=== PATIENT | male | born 1975 | race Caucasian/White ===

== ENCOUNTER 2018-11-04 07:13 | Emergency (ER) | payer BC ==
--- NOTE | 2018-11-04 07:26 | ED Physician Documentation ---
History of Present Illness - Stated complaint Stated Complaint: COUGH/FEVER/BODY ACHE - History obtained from History obtained from: Patient, Family - History of Present Illness Pain level max: 9 - Additonal information Additional information: Patient is a previously healthy 43-year-old male presenting with flulike symptoms for the past 1 week. Patient does note multiple sick contacts at home with similar symptoms. Patient reports childhood asthma and remote history of smoking, but quit over 15 years ago. Patient does have history of high blood pressure as well, but is controlled without medication. Patient complains of fever treated with ibuprofen, as well as nasal congestion, sinus pressure, sore throat, productive cough, and chest discomfort while coughing. Patient also reports one episode of posttussive emesis, but denies other abdominal pain, vomiting, urinary changes, stool changes. Patient reports that ibuprofen has alleviated fever, but has not helped discomfort. Coughing worsens all symptoms. Review of Systems Ten Systems: 10 systems reviewed and negative Constitutional: reports: Fever, Chills Ears: denies: Ear pain Nose: reports: Rhinorrhea / runny nose, Congestion Throat: reports: Sore throat Cardiac: reports: Chest pain / pressure Respiratory: reports: Dyspnea, Cough GI: reports: Vomiting. denies: Abdominal Pain, Constipation, Diarrhea : denies: Dysuria PD PAST MEDICAL HISTORY - Past Medical History Past Medical History: Yes Cardiovascular: Hypertension Respiratory: Asthma - Past Surgical History Past Surgical History: No - Present Medications Home Medications: Ambulatory Orders Medication Instructions Recorded Confirmed RX: Albuterol Sulf [Ventolin Hfa 1 - 2 puffs INH Q4HR PRN #1 inhaler 11/04/18 Inhaler] RX: Azithromycin [Zithromax] 250 mg PO DAILY #6 tablet 11/04/18 - Allergies Allergies/Adverse Reactions: Allergies Allergy/AdvReac Type Severity Reaction Status Date / Time No Known Drug Allergies Allergy Verified 11/04/18 07:29 - Social History Smoking Status: Former smoker PD ED PE NORMAL - General General: Alert and oriented X 3, No acute distress, Well developed/nourished - HEENT HEENT: Atraumatic, EOMI, Moist mucous membranes, Pharynx benign, Dentition benign - Neck Neck: Supple, no meningeal sign - Cardiac Cardiac: RRR, No murmur - Respiratory Respiratory: No respiratory distress, Other (Diminished lung sounds over bases bilaterally with occasional expiratory wheeze scattered throughout) - Abdomen Abdomen: Normal bowel sounds, Soft, Non tender, Non distended - Derm Derm: Normal color, Warm and dry, No rash - Extremities Extremities: No deformity - Neuro Neuro: Alert and oriented X 3, No motor deficit, No sensory deficit - Psych Psych: Normal mood, Normal affect Results - Vitals Vitals: Vital Signs - 24 hr 11/04/18 11/04/18 07:26 07:51 Temperature 36.1 C L Heart Rate 97 95 Respiratory 14 16 Rate Blood Pressure 136/83 H O2 Saturation 98 Oxygen O2 Source Room air PD MEDICAL DECISION MAKING - ED course Complexity details: re-evaluated patient, considered differential, d/w patient, d/w family ED course: Most concerning for influenza, URI, other viral illness, as well as asthma exacerbation, COPD exacerbation, pneumonia, but feel less likely. Vital signs within normal limits upon arrival. Patient currently afebrile. Patient reports sick contacts with similar symptoms and viral-like syndrome over the past 1 week. Patient also reports purulent drainage from nose and productive cough making sinusitis and pneumonia more likely. Also considering etiologies such as bronchitis or generalized URI. Have lower suspicion for cardiac etiology such as ACS, myocardial infarction, unstable angina. Do not have high suspicion for PE and patient can be ruled out by PERC criteria. Do not the patient requires cardiac workup or interventions at this time. Patient reports childhood history of asthma and history of smoking over 15 years ago. Do not feel that patient is in particular exacerbation, but considered, particularly given wheezing on exam. [place] appropriate to provide breathing treatment of albuterol, but do not feel he requires further interventions beyond that. Chest x-ray also obtained to further evaluate possible pneumonia. Discussed potential influenza testing and Tamiflu with patient, but all decided that it was not necessarily appropriate given duration of symptoms now 1 week. Patient is out of treatment window for influenza and can otherwise be treated with supportive cares at this juncture.Albuterol treatment provided significant improvement for patient and plan to provide him with prescription for albuterol inhaler. Chest x-ray revealed slight changes indicative of possible pneumonia given clinical scenario and exam, feel appropriate to treat for community acquired pneumonia. Discussed results and recommendations with patient and family, who voiced understanding and are comfortable with discharge plan. Departure - Departure Disposition: 01 Home, Self Care Clinical Impression: Pneumonia Qualifiers: Pneumonia type: due to unspecified organism Laterality: unspecified laterality Lung location: unspecified part of lung Qualified Code(s): J18.9 - Pneumonia, unspecified organism Condition: Good Instructions: Pneumonia Dc Follow-Up: DELMA MYERS MD [Primary Care Provider] - Within 3 Days Prescriptions: RX: Albuterol Sulf [Ventolin Hfa Inhaler] 1 - 2 puffs INH Q4HR PRN #1 inhaler PRN Reason: Shortness Of Air/Wheezing RX: Azithromycin [Zithromax] 250 mg PO DAILY #6 tablet Comments: Please use inhaler as needed as instructed. Please start antibiotics today and make sure you complete as instructed. Also recommend other [id number] supportive care such as nasal decongestants, ibuprofen, Tylenol, as well as hydration and rest. Follow-up with primary care physician in next 2-3 days and return to ED sooner if experience worsening symptoms or other concerns. Discharge Date/Time: 11/04/18 09:32
[2018-11-04 07:29] VITALS: BP 136/83
[2018-11-04] MEDS ORDERED: ALBUTEROL NEB 2.5 MG/3 ML INH STA (07:43)
--- NOTE | 2018-11-04 08:43 | XRAY Report ---
Reason: 1 week productive cough, wheezing on exam Procedure Date: 11/04/2018 Accession Number: [id number] / [id number] Procedure: XR - Chest 2 View X-Ray CPT Code: 80801 FULL RESULT: EXAM: CHEST RADIOGRAPHY EXAM DATE: 11/04/2018 08:10 AM. CLINICAL HISTORY: 1 week productive cough, wheezing on exam. COMPARISON: None. TECHNIQUE: 2 views. FINDINGS: Lungs/Pleura: Small amount of bronchial wall thickening centrally. Mild groundglass and reticular opacity at the right lung base. No pleural effusion. No pneumothorax. Mediastinum: Cardiac silhouette size appears unremarkable. Other: None. IMPRESSION: 1. Small amount of bronchial wall thickening centrally, suggesting airways disease. Additionally, mild groundglass and reticular opacity at the right lung base, which may represent mild pneumonia in the proper clinical setting. [facility]
== END 2018-11-04 09:32 | disposition home or self-care (01) ==
LOC: ED 07:13
DX: J18.9 Pneumonia, unspecified organism (principal); Z87.891 Personal history of nicotine dependence
CPT/HCPCS: 71046; 94640; 99283; 99284

== ENCOUNTER 2021-03-06 09:09 | Outpatient (CLI) | payer BC | END 2021-03-06 09:10 | disposition home or self-care (01) | LOC: LAB.S 09:09 | PROVIDERS: ATTEND Internal Medicine | DX: E29.1 Testicular hypofunction (principal) | CPT/HCPCS: 36415; 81599; 84402; 84403 ==